=== PATIENT | male | born 1995 | race African-American/Black ===

== ENCOUNTER 2018-11-15 05:48 | Emergency (ER) | payer SELFPAY ==
[~2018-11-15] VITALS: Ht 167.6 cm; Wt 82.6 kg
[2018-11-15] MEDS ORDERED: ACETAMINOPHEN 325 MG TABLET. PO ONE (06:15)
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
[2018-11-15 08:00] VITALS: BP 128/74
== END 2018-11-15 08:04 | disposition home or self-care (01) ==
LOC: ER 05:48
DX: S02.2XXA Fracture of nasal bones, initial encounter for closed fracture (principal); S40.021A Contusion of right upper arm, initial encounter; S80.02XA Contusion of left knee, initial encounter; S60.512A Abrasion of left hand, initial encounter; S60.511A Abrasion of right hand, initial encounter; M54.5 Low back pain; M54.2 Cervicalgia; R60.0 Localized edema; Y04.0XXA Assault by unarmed brawl or fight, initial encounter; Y93.89 Activity, other specified; Y92.89 Other specified places as the place of occurrence of the external cause; Y99.8 Other external cause status
CPT/HCPCS: 70450; 70486; 72072; 72100; 72125; 73090; 73130; 73562; 99284-25